=== PATIENT | female | born 2005 | race Two or more races ===

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

== ENCOUNTER 2023-01-28 16:03 | Emergency (ER) | payer OTHER ==
[~2023-01-28] VITALS: Ht 165.1 cm; Wt 56.2 kg
== END 2023-01-28 23:00 | disposition home or self-care (01) ==
LOC: EMR PED 16:03
DX: K29.60 Other gastritis without bleeding (principal); E86.0 Dehydration; F29 Unspecified psychosis not due to a substance or known physiological condition

== ENCOUNTER 2023-06-27 08:32 | Outpatient (CLI) | payer OTHER ==
[2023-06-27 11:08] LABS: PH,URINE 5.5 (5.0-8.0); URINE APPEARANCE Cloudy; URINE BILIRRUBIN Negative (NEGATIVE); URINE BLOOD Trace; URINE COLOR Yellow; URINE GLUCOSE Negative (NEGATIVE); URINE LEUKOCYTE Moderate; URINE NITRATE Positive; URINE PROTEIN Negative (NEGATIVE); URINE UROBILINOGEN 0.2 E.U./dl
[2023-06-27 11:09] LABS: URINE EPITHELIAL CELLS 52.5 uL (0.0-38.8); URINE RBC 6.3 uL (0.0-20.8); URINE WBC 188.2 uL (0.0-23.2)
[2023-06-27 11:28] LABS: HEMATOCRIT 39.6 % (36.0-45.00); HEMOGLOBIN 13.5 g/dL (12.0-15.00); MEAN CELL VOLUME 90.8 fL (80.00-100.00); MEAN CORPUSCULAR HEMOGLOBIN 30.9 pg (27.00-32.0); PLATELET COUNT 259 K/uL (150-450); RED BLOOD COUNT 4.36 M/uL (4.00-6.00); RED CELL DISTRIBUTION WIDTH 12.3 % (11.5-14.5)
[2023-06-27 11:34] LABS: COCAINE NEGATIVE (NEGATIVE); METHADONE NEGATIVE (NEGATIVE); OPIATES NEGATIVE (NEGATIVE); THC ( Cannabinoids) NEGATIVE (NEGATIVE)
[2023-06-27 11:53] LABS: URINE BACTERIA > 9821.5 uL (0.0-1933)
[2023-06-27 12:04] LABS: ALBUMIN 3.8 gm/dL (3.4-5.0); BILIRUBIN TOTAL 0.43 mg/dL (0.3-1.2); CALCIUM 9.3 mg/dL (8.5-10.1); CHOL HDL RATIO 3.1 (0-5.0); CREATININE SERUM 0.75 mg/dL (0.55-1.02); GFR 99.55; GLOBULINA 3.8 G/DL (2.4-3.5); POTASSIUM 3.61 mEq/L (3.5-5.1); T4 FREE 1.06 NG/ML (0.76-1.46); TOTAL PROTEIN 7.6 gm/dL (6.4-8.2); TSH 0.662 uIU/mL (0.358-3.74)
[2023-06-29 13:43] LABS: FOLIC ACID 17.19 ng/ml (4.78-20); T3 TOTAL 1.67 ng/ml (0.846-2.02); VITAMIN D3 25 HYDROXY 27.93 ng/ml (30-120)
[2023-06-29 15:50] LABS: RAPID PLASMA REAGIN NONREACTIVE BY RPR (NONREACTIVE)
== END 2023-06-27 23:00 | disposition home or self-care (01) ==
LOC: LAB 08:32
DX: D64.9 Anemia, unspecified (principal); E03.9 Hypothyroidism, unspecified; N39.0 Urinary tract infection, site not specified; D51.9 Vitamin B12 deficiency anemia, unspecified; E55.9 Vitamin D deficiency, unspecified; E11.9 Type 2 diabetes mellitus without complications; E78.5 Hyperlipidemia, unspecified; Z15.81 Genetic susceptibility to multiple endocrine neoplasia [MEN]; T65.93XA Toxic effect of unspecified substance, assault, initial encounter; D52.9 Folate deficiency anemia, unspecified; E22.1 Hyperprolactinemia

== ENCOUNTER → 2024-03-12 08:45 | Outpatient (CLI) | payer OTHER ==
[2024-03-12 10:26] LABS: PH,URINE 6.5 (5.0-8.0); URINE APPEARANCE Clear; URINE BILIRRUBIN Negative (NEGATIVE); URINE BLOOD Negative; URINE COLOR Yellow; URINE GLUCOSE Negative (NEGATIVE); URINE KETONE Trace (NEGATIVE); URINE LEUKOCYTE Negative; URINE NITRATE Negative; URINE PROTEIN Negative (NEGATIVE); URINE UROBILINOGEN 0.2 E.U./dl
[2024-03-12 10:31] LABS: URINE BACTERIA 447.2 uL (0.0-1933); URINE EPITHELIAL CELLS 12.1 uL (0.0-38.8); URINE RBC 5.6 uL (0.0-20.8); URINE WBC 13.7 uL (0.0-23.2)
[2024-03-12 10:44] LABS: HEMATOCRIT 38.4 % (36.0-45.00); HEMOGLOBIN 13.2 g/dL (12.0-15.00); MEAN CELL VOLUME 87.2 fL (80.00-100.00); MEAN CORPUSCULAR HGB CONC 34.4 g/dl (32.0-36.0); PLATELET COUNT 246 K/uL (150-450); RED BLOOD COUNT 4.41 M/uL (4.00-6.00); RED CELL DISTRIBUTION WIDTH 13.4 % (11.5-14.5)
[2024-03-12 10:52] LABS: URINE CAST 0.15 uL (0.0-1.40)
[2024-03-12 11:10] LABS: ALBUMIN 3.7 gm/dL (3.4-5.0); BILIRUBIN TOTAL 0.21 mg/dL (0.3-1.2); CALCIUM 9.4 mg/dL (8.5-10.1); CHOL HDL RATIO 3.6 (0-5.0); CREATININE SERUM 0.74 mg/dL (0.55-1.02); GFR 100.05; GLOBULINA 4.1 G/DL (2.4-3.5); POTASSIUM 4.36 mEq/L (3.5-5.1); TOTAL PROTEIN 7.8 gm/dL (6.4-8.2); TSH 1.17 uIU/mL (0.358-3.74)
== END | disposition home or self-care (01) ==
LOC: LAB 08:45
PROVIDERS: ATTEND Student in an Organized Health Care Education/Training Program
DX: D64.9 Anemia, unspecified (principal); E78.5 Hyperlipidemia, unspecified; E03.9 Hypothyroidism, unspecified; E87.8 Other disorders of electrolyte and fluid balance, not elsewhere classified; E55.9 Vitamin D deficiency, unspecified; R80.9 Proteinuria, unspecified

== ENCOUNTER → 2025-04-22 07:28 | Outpatient (CLI) | payer OTHER ==
[2025-04-22 07:53] LABS: URINE APPEARANCE Clear; URINE BILIRRUBIN Negative (NEGATIVE); URINE BLOOD Negative; URINE COLOR Yellow; URINE GLUCOSE Negative (NEGATIVE); URINE KETONE Negative (NEGATIVE); URINE LEUKOCYTE Negative; URINE NITRATE Negative; URINE PROTEIN Negative (NEGATIVE); URINE UROBILINOGEN 0.2 E.U./dl
[2025-04-22 07:54] LABS: BASO % 1.0 % (0.1-1.2); EOS # 0.66 (0.04-0.54); EOS % 10.7 % (0.7-7.0); LYMPH # 2.72 (1.18-3.74); LYMPH % 44.1 % (19.3-53.1); MEAN PLATELET VOLUME 10.60 fl (9.4-12.4); MONO # 0.34 (0.24-0.82); MONO % 5.5 % (4.7-12.5); NEUT # 2.38 (1.56-6.13); NEUT % 38.5 % (34.0-71.1); RED CELL DISTRIBUTION WIDTH 12.0 % (11.6-14.4)
[2025-04-22 07:56] LABS: URINE BACTERIA 107.9 uL (0.0-1933); URINE EPITHELIAL CELLS 2.1 uL (0.0-38.8); URINE RBC 5.8 uL (0.0-20.8); URINE WBC 2.6 uL (0.0-23.2)
[2025-04-22 08:23] LABS: URINE CAST 0.14 uL (0.0-1.40)
[2025-04-22 08:56] LABS: ALT/SGPT 51.0 U/L (12-78); AST/SGOT 15.0 U/L (15-37); BILIRUBIN TOTAL 0.37 mg/dL (0.3-1.2); BUN CREA RATIO 15.0 (7.0-25.0); CHOL HDL RATIO 2.7 (0-5.0); CREATININE SERUM 0.67 mg/dL (0.55-1.02); GFR 111.11; GLOBULINA 3.6 G/DL (2.4-3.5); GLUCOSE FASTING 85.0 mg/dL (65-100); HDL 42.0 mg/dl (40-60); LDL 55.0 mg/dl (0-130); OSMOLALITY SERUM 281.0 MOSM/KG (275-295); T4 TOTAL 11.42 UG/DL (4.8-13.9); TSH 1.32 uIU/mL (0.358-3.74); VLDL 18.0 (0-39)
== END | disposition home or self-care (01) ==
LOC: LAB 07:28
DX: D64.9 Anemia, unspecified (principal); E16.8 Other specified disorders of pancreatic internal secretion; E78.00 Pure hypercholesterolemia, unspecified; E03.9 Hypothyroidism, unspecified; N39.0 Urinary tract infection, site not specified; E16.2 Hypoglycemia, unspecified